=== PATIENT | male | born 1945 | race Caucasian/White ===

== ENCOUNTER 2024-09-09 10:06 | Day surgery (SDC) | payer OTHER ==
[2024-09-08 11:38] VITALS: BMI 25.0
[2024-09-09] MEDS ORDERED: Bupivacaine PF 0.5% 30 ML VIAL ONE (10:21)
[2024-09-09] MEDS ORDERED: CEFAZOLIN 2 GM VIAL ONE (11:44)
[2024-09-09] MEDS ORDERED: Lidocaine 2% PF 5 ML VIAL ONE (11:44)
[2024-09-09] MEDS ORDERED: PROPOFOL 20 ML ONE (11:45)
[2024-09-09] MEDS ORDERED: fentaNYL 50 mcg/mL 1 mL Vial ONE (12:02)
[2024-09-09] MEDS ORDERED: Ondansetron PF 4 MG/2 ML Vial ONE (12:17)
[2024-09-09] MEDS ORDERED: ePHEDrine Sulfate 50 MG/10 ML VIAL ONE (12:17)
[2024-09-09] MEDS ORDERED: Dexamethasone 4 mg/ml Vial ONE (12:17)
== END 2024-09-09 13:40 | disposition home or self-care (01) ==
LOC: CSHSDC 10:06
PROVIDERS: ATTEND Podiatrist Foot & Ankle Surgery
PROC: 0QTP0ZZ Resection of Left Metatarsal, Open Approach (ICD-10-PCS; principal; 2024-09-09)
DX: M67.272 Synovial hypertrophy, not elsewhere classified, left ankle and foot (principal); M77.42 Metatarsalgia, left foot; F17.200 Nicotine dependence, unspecified, uncomplicated; E78.00 Pure hypercholesterolemia, unspecified; E03.9 Hypothyroidism, unspecified; M19.90 Unspecified osteoarthritis, unspecified site; M06.9 Rheumatoid arthritis, unspecified; Z79.51 Long term (current) use of inhaled steroids; Z79.899 Other long term (current) drug therapy; Z79.890 Hormone replacement therapy; Z98.890 Other specified postprocedural states
CPT/HCPCS: 88305; 88311; J0665; J1100; J2405; J2704; J3010